=== PATIENT | female | born 1945 | race Caucasian/White ===

== ENCOUNTER 2017-02-08 14:20 | Emergency (ER) | payer MEDICARE ==
[2017-02-08 15:30] VITALS: BP 134/50
--- NOTE | 2017-02-08 15:46 | ED ---
HPI Cardiac - HPI Summary HPI Summary: 71 yr old female with the complaint of runny nose, post nasal drip, left ear pain, fatigue, coughing. She states she has been ill over the weekend, she has discomfort in the upper chest with coughing spells. She has not had SOB. She has felt a little dizzy, but no palpitations, and no vertigo. She states her left ear has been hurting a lot. The patient relocated here from [facility] a month ago. Her mom here in [place] and the is in three days. She states she has family around her that are all ill with runny nose, coughing symptoms. - History of Current Complaint Chief Complaint: UCRespiratory Stated Complaint: COUGH,THROAT,WEAKNESS Time Seen by Provider: 02/08/17 15:19 - Allergy/Home Medications Allergies/Adverse Reactions: Allergies Allergy/AdvReac Type Severity Reaction Status Date / Time Penicillins Allergy Hives Verified 02/08/17 15:30 Home Medications: Home Medications Atorvastatin* [Lipitor*] 10 mg PO DAILY 02/08/17 [History Confirmed 02/08/17] Ibuprofen TAB* [Advil TAB*] 400 mg PO ONCE PRN 02/08/17 [History Confirmed 02/08] PARoxetine HCL TAB* [Paxil TAB*] 10 mg PO DAILY 02/08/17 [History Confirmed ] PMH/Surg Hx/FS Hx/Imm Hx Cardiovascular History: Reports: Hx Hypercholesterolemia - Surgical History Surgery Procedure, Year, and Place: b/l knees, b/l cataracts; right bunion with metal, tonsils Infectious Disease History: No Infectious Disease History: Denies: Traveled Outside the in Last 30 Days - Family History Known Family History: Positive: None - Social History Alcohol Use: None Substance Use Type: Reports: None Smoking Status (MU): Former Smoker Review of Systems Positive: Fatigue Positive: Sore Throat, Ear Ache, Nasal Discharge Positive: Cough All Other Systems Reviewed And Are Negative: Yes Physical Exam Triage Information Reviewed: Yes Vital Signs On Initial Exam: Initial Vitals Temp Pulse Resp BP Pulse Ox 98.6 F 84 20 134/50 98 02/08/17 15:02 02/08/17 15:02 02/08/17 15:02 02/08/17 15:02 02/08/17 15:02 Vital Signs Reviewed: Yes Appearance: Positive: Well-Appearing, No Pain Distress Skin: Positive: Warm, Skin Color Reflects Adequate Perfusion Head/Face: Positive: Normal Head/Face Inspection Eyes: Positive: EOMI ENT: Positive: Normal ENT inspection, Pharyngeal erythema, TM red - left with effusion, and retraction of TM on left, Uvula midline. Negative: Muffled voice , Hoarse voice Neck: Positive: Nontender Respiratory/Lung Sounds: Positive: Clear to Auscultation, Breath Sounds Present Cardiovascular: Positive: RRR. Negative: Murmur Abdomen Description: Positive: Nontender Musculoskeletal: Positive: Strength/ROM Intact Neurological: Positive: Sensory/Motor Intact, Alert, Oriented to Person Place, Time, CN Intact II-III Psychiatric: Positive: Normal - Maciej Coma Scale Best Eye Response: 4 - Spontaneous Best Motor Response: 6 - Obeys Commands Best Verbal Response: 5 - Oriented Diagnostics - Vital Signs Vital Signs Temp Pulse Resp BP Pulse Ox 02/08/17 15:02 98.6 F 84 20 134/50 98 - Laboratory Lab Statement: Any lab studies that have been ordered have been reviewed, and results considered in the medical decision making process. - EKG 02/08/2017 Cardiac Rate: NL EKG Rhythm: Sinus Rhythm ST Segment: Normal Ectopy: None Disposition - Course Course Of Treatment: 71 yr old with Left OM, and URi symptoms. Will Dc her to home in good condition. - Diagnoses Provider Diagnoses: Otitis media, left, Upper respiratory infection Discharge - Discharge Plan Condition: Good Disposition: HOME Prescriptions: Azithromycin TAB* [Zithromax TAB (Z-ANAMARIA) 250 mg #6 tabs] 2 tab PO .TODAY, THEN 1 DAILY #1 anamaria Patient Education Materials: Otitis Media (ED), Upper Respiratory Infection (ED ) Referrals: [facility] [place] [facility]ERR[facility] [Outside]
== END 2017-02-08 15:57 | disposition home or self-care (01) ==
LOC: UCCORT 14:20
DX: H66.92 Otitis media, unspecified, left ear (principal); J06.9 Acute upper respiratory infection, unspecified; Z88.0 Allergy status to penicillin; E78.00 Pure hypercholesterolemia, unspecified; Z87.891 Personal history of nicotine dependence
CPT/HCPCS: 93005; 99202; G0463

== ENCOUNTER 2017-02-17 09:29 | Emergency (ER) | payer MEDICARE ==
[2017-02-17 10:28] VITALS: BP 133/55
--- NOTE | 2017-02-17 11:06 | UC ---
Throat Pain/Nasal Zhou HPI - HPI Summary HPI Summary: She was seen here about 10 days ago and placed on antibiotics. She had pressure and congestion that is helped a little with benadryl. she has no other neurologic defecits. She denies smoking, prior CVA, DM, HTN or heart disease. She has continued vertigo and imbalance. The pressure persists. She has not tried decongestants. - History of Current Complaint Chief Complaint: UCEar Stated Complaint: DIZZINESS CONGESTION Time Seen by Provider: 02/17/17 10:44 Hx Obtained From: Patient ?: No Onset/Duration: Gradual Onset, Lasting Days Severity: Moderate Cough: Nonproductive Associated Signs & Symptoms: Positive: Negative - Epiglottits Risk Factors Epiglottis Risk Factors: Negative - Allergies/Home Medications Allergies/Adverse Reactions: Allergies Allergy/AdvReac Type Severity Reaction Status Date / Time Penicillins Allergy Hives Verified 02/17/17 10:28 Home Medications: Home Medications Diphenhydramine HCl [Benadryl Allergy] 25 mg PO BEDTIME PRN 02/17/17 [History Confirmed 02/17/17] PMH/Surg Hx/FS Hx/Imm Hx Previously Healthy: No - Post nasal drip. - Surgical History Surgical History: Yes Surgery Procedure, Year, and Place: b/l knees, b/l cataracts; right bunion with metal, tonsils - Family History Known Family History: Positive: None - Social History Occupation: Retired Alcohol Use: None Substance Use Type: None Smoking Status (MU): Former Smoker Review of Systems ENT: Sinus Congestion, Sinus Pain/Tenderness Neurological: Negative, Other - she has vertigo alone. All Other Systems Reviewed And Are Negative: Yes Physical Exam Triage Information Reviewed: Yes Appearance: Well-Appearing, Well-Nourished, Obese Vital Signs: Initial Vital Signs Temp 98.4 F 02/17/17 10:17 Pulse 78 02/17/17 10:17 Resp 18 02/17/17 10:17 BP 133/55 02/17/17 10:17 Pulse Ox 98 02/17/17 10:17 Vital Signs Reviewed: Yes Eyes: Positive: Conjunctiva Clear ENT: Positive: Normal ENT inspection, Pharynx normal, Pharyngeal erythema, Nasal congestion, TM bulging, Uvula midline. Negative: TM dull, TM red, Tonsillar swelling, Tonsillar exudate, Trismus, Muffled voice, Hoarse voice Neck: Positive: Supple, Nontender, No Lymphadenopathy Respiratory Exam: Normal Respiratory: Positive: Chest non-tender, Normal breath sounds, No respiratory distress, No accessory muscle use, Respiratory distress Cardiovascular: Positive: RRR, No Murmur, Pulses Normal Abdominal Exam: Normal Musculoskeletal: Positive: Strength Intact, ROM Intact, No Edema Neurological: Positive: Alert, Muscle Tone Normal. Negative: Fatigued Skin: Negative: rashes Throat Pain/Nasal Course/Dx - Course Course Of Treatment: Full neuro exam negative for any cerebellar findings. She has isolated horizontal nystagmus. She agrees to f/u with [facility], try decongestants, meclizine, nasal/sinus irrigation. We have conidered cva, brain tumor. Further testing is needed to rule these out. - Differential Dx/Diagnosis Provider Diagnoses: vertigo. sinus pressure. Discharge - Discharge Plan Condition: Good Disposition: HOME Prescriptions: Meclizine HCl [Meclizine 25] 25 mg PO TID PRN #30 tab PRN Reason: Vertigo Patient Education Materials: Nasal Rinse (ED), Rhinosinusitis (ED) Referrals: Non Staff,Doctor [Primary Care Provider] - Jt Montenegro MD [Medical Doctor] -
== END 2017-02-17 11:11 | disposition home or self-care (01) ==
LOC: UCCORT 09:29
DX: R42 Dizziness and giddiness (principal); J32.9 Chronic sinusitis, unspecified
CPT/HCPCS: 99212; G0463